=== PATIENT | male | born 1990 | race Caucasian/White ===

== ENCOUNTER 2016-12-11 15:31 | Emergency (ER) | payer OTHER ==
[~2016-12-11] VITALS: Ht 170.2 cm; Wt 72.7 kg
[~2016-12-11 15:31] MED LIST: IBUP800T28 PO
[2016-12-11 15:39] VITALS: BP 107/70; PULSE 71; RESP 15; O2SAT 99
--- NOTE | 2016-12-11 18:20 | ED.REPORT ---
HPI-Rash / Abscess Date of Service Dec 11, 2016 ED Provider: Keith Olmos MD Buck is a 26-year-old injection drug user who presents with a chief complaint of an abscess on his left anterior forearm. He states that his been there for 3 days. He also complains of an area of induration over the insertion of his right pectoral muscle near axilla. Reports neither site is particularly painful. Denies fever, chills, malaise, vomiting, abdominal pain. Nursing Notes Stated Complaint: LEFT ARM BUMP Chief Complaint: Skin Rash/Abscess Nursing Notes Reviewed: Yes Allergies: Coded Allergies: No Known Allergies (Unverified , 12/11/16) Scheduled Cephalexin (Keflex) 500 Mg Capsule 500 MG PO QID Sulfamethoxazole/Trimeth 800-160 mg (Bactrim DS) 1 Each Tablet 1 TABLET PO BID Scheduled PRN Ibuprofen (Ibuprofen) 800 Mg Tablet 800 MG PO BID PRN PRN For Pain General Time Seen by MD: 17:36 Chief Complaint Abscess Review of Systems Review of Systems Note: Negative unless stated otherwise in history of present illness Physical Exam General: Well appearing, well developed, well nourished, no acute distress. Left arm: 2 cm area of raised induration on anterior left forearm, no surrounding erythema or lymphangitis. Half centimeter area of raised induration proximal to this point with no area of fluctuance, erythema or lymphangitis. Evidence of injection drug use. Right arm: 3 cm x 3 cm area of firmness and ecchymosis anterior right axilla. Mild tenderness, no erythema or warmth. Head: Atraumatic, normocephalic. Eyes: No scleral icterus or injection. No discharge. Vision grossly intact. ENT: Voice clear, hearing grossly intact. Skin: Warm and dry. Neurological: Grossly nonfocal. Psychological: alert and oriented. Speech appropriate, linear and logical. Behavior appropriate. Initial Vital Signs Vital Signs (First) Date Time Temp Pulse Resp B/P Pulse Ox O2 Delivery O2 Flow Rate FiO2 12/11/16 15:39 36.2 71 15 107/70 99 Room Air Initial VS: Reviewed, Vital signs normal Procedures Incision & Drainage Abscess Procedure Performed by: [facility] pract Consent / Setup / Site Prep: Informed consent provided, Consent from patient , Hand hygiene observed Skin Preparation Agent: Betadine Local Anesthesia: Lidocaine w epi 1%, 1cc Incised Abscess with Scalpel: #11 Pus Drained: Small, Purulent discharge, Bloody Irrigation: No Post-Procedure / Complications: Packing placed, Culture obtained, Condition improved, Tolerated procedure well, Patient stable Re-Eval/Medical Decision Med Decision/Clinical Course 26-year-old male otherwise healthy but with a history of IV drug use presents with an approximately 2 cm abscess on his left forearm. No complaints of fever , chills, malaise, abdominal pain and vomiting. He also has an area of firmness in his anterior right axilla. Incision and drainage of the left arm wound produces a small amount of pus. Packing is placed, prescribed Bactrim DS and Keflex for one week and asked for return in 3 days for wound check. Patient tolerated the procedure well and agrees with the plan. The area of firmness in the right axilla was examined by Dr. olmos with ultrasound. Some indication of scarring and infection but no comparable target. The feeling is this should improve with antibiotics and will be checked again in 3 days. Advised primary care follow-up, provided return precautions. Patient feels comfortable with the plan and ready for discharge, answered all questions to the best of my ability. Discharge & Departure Impression: Primary Impression: Abscess Disposition: Home Discharge Condition All VS Reviewed: Yes Condition: Stable Patient Instructions: Abscess Incision and Drainage (ED) Additional Instructions: Evaluation for an abscess in the emergency department. We cut and drained the abscess on your left forearm, place a small wick in it and took a culture. I suggest the leave this wound covered and dry for the next 24 hours. After that you can remove the dressing, removed the packing, wash with soap and water, reapply antibiotic ointment and re-cover. The swelling area right armpit, we ultrasounded. We did see signs that there may be an infection, but not a large pus pocket that is worth draining. This should improve with use of antibiotics and we will look at it in 3 days. The pain is best treated with 400 mg of ibuprofen (Advil, Motrin) every 6 hours , or 1000 mg of acetaminophen (Tylenol) every 6 hours. These drugs can be taken at the same time for more severe pain. I have prescribed 2 different kinds of antibiotics to please take them both for the entire 7 days. Be vigilant for signs of infection including increasing pain, redness, swelling or the appearance of pus.Return to emergency department in 3 days for a wound check, or sooner for new or worsening symptoms including fever or signs of infection. Referrals: Amador Sotelo MD (PCP) EDSupervising Provider for APC: Keith Olmos MD Attending Statement Attending attestation: I saw this patient in conjunction with Yair Burns PA-C. I was present for all rios portions of the history taking and physical examination. I agree with the workup, evaluation, treatment and disposition. Keith Olmos MD copies to: Amador Sotelo MD, Seth PA-C Dec 11, 2016 18:20 Keith Olmos MD Dec 11, 2016 18:32
[2016-12-11] MEDS ORDERED: CEPH-512 PO (18:21)
[2016-12-11] MEDS ORDERED: SULF1TAB7 PO (18:21)
[2016-12-11 18:34] VITALS: BP 116/58; PULSE 56; O2SAT 100
== END 2016-12-11 18:36 | disposition home or self-care (01) ==
LOC: SED 15:31
DX: L02.414 Cutaneous abscess of left upper limb (principal)

== ENCOUNTER 2016-12-16 17:33 | Emergency (ER) | payer OTHER ==
[~2016-12-16 17:33] MED LIST changes: +CEPH-512 PO; +SULF1TAB7 PO
[2016-12-16 17:43] VITALS: BP 100/66; PULSE 84; RESP 18; O2SAT 99
--- NOTE | 2016-12-16 20:42 | ED.REPORT ---
HPI-Rash / Abscess Date of Service Dec 16, 2016 ED Provider: Yair Burns PA-C Patient is a 26-year-old male with a history of injection drug use who presents for wound recheck after I&D of an abscess on his left forearm 3 days ago. The patient reports the wound is improving and denies systemic symptoms such as fever, chills, malaise, abdominal pain, vomiting, palpitations. However area of induration on his left shoulder he reports it is quite itchy and does not appear to be improving. Nursing Notes Stated Complaint: RECHECK Chief Complaint: Wound Recheck/Suture Removal Nursing Notes Reviewed: Yes Allergies: Coded Allergies: No Known Allergies (Unverified , 12/11/16) Scheduled Cephalexin (Keflex) 500 Mg Capsule 500 MG PO QID Sulfamethoxazole/Trimeth 800-160 mg (Bactrim DS) 1 Each Tablet 1 TABLET PO BID Scheduled PRN Ibuprofen (Ibuprofen) 800 Mg Tablet 800 MG PO BID PRN PRN For Pain General Time Seen by MD: 18:53 Chief Complaint Other (wound recheck) Past Medical History Past Medical History Notes: Denies Review of Systems Negative unless stated otherwise in history of present illness Physical Exam General: Well appearing, well developed, well nourished, no acute distress. Left arm: Site of incision and drainage appears to be healing well. The packing has fallen out and the wound is slightly crusted over. No longer gaping. Struck by a small area of erythema. No tenderness. Right arm: Head: Atraumatic, normocephalic. Eyes: No scleral icterus or injection. No discharge. Vision grossly intact. ENT: Voice clear, hearing grossly intact. Respiratory: No respiratory distress, no increased work of breathing. Speaks in complete sentences. Skin: Warm and dry. Neurological: Grossly nonfocal. Psychological: alert and oriented. Speech appropriate, linear and logical. Behavior appropriate. Initial Vital Signs Vital Signs (First) Date Time Temp Pulse Resp B/P Pulse Ox O2 Delivery O2 Flow Rate FiO2 12/16/16 17:43 36.8 84 18 100/66 99 Room Air Initial VS: Reviewed, Vital signs normal Interpretation & Diagnostics Interpretation & Diagnostics: Wound culture from previous visit: Microbiology LUZ GS (GRAM STAIN) Final 12/11/16-2118 GRAM STAIN RESULT RARE POLYS NO ORGANISMS SEEN LUZ CULT AEROBIC Final 12/16/16 SCANT NORMAL SANKET PRESENT ANAEROBIC CULTURE Final 12/16/16 No anaerobes isolated US Soft Tissue/Musculoskeletal Phlegmon/abscess 1 x 2 cm on anterior deltoid Exam Performed by: ED physician (Dr. Quigley) Indication: Swelling Procedures Incision & Drainage Abscess Procedure Performed by: Allied health pract Consent / Setup / Site Prep: Informed consent provided, Consent from patient , Hand hygiene observed, Stand sterile technique Skin Preparation Agent: Other (alcohol) Local Anesthesia: Other (Sensorcaine 0.5%) Incised Abscess with Scalpel: #11 Pus Drained: Bloody (bloody with slight purulence.) Irrigation: No Post-Procedure / Complications: Packing placed, Dressing applied, No complications, Condition improved, Tolerated procedure well, Patient stable Re-Eval/Medical Decision Med Decision/Clinical Course 18-year-old male with history of IV drug abuse return sooner to the department for a wound check following an incision and drainage 3 days ago on his left forearm. This wound appears to be healing well, the packing has fallen out and the wound is closed. It is surrounded by a very small area of erythema and is nontender. Area of induration on the patient's right shoulder which was examined with ultrasound 3 days ago and did not reveal any pockets of fluid, appears relatively unchanged and appears fluctuant on physical examination. Repeat examination with ultrasound by Dr. Quigley reveals a pocket of fluid. Incision and drainage produces only blood and a very small amount of pus. No areas of fluctuance are detected by palpation after the procedure. The wound is packed and dressed with gauze. Patient is instructed to follow-up with his primary care provider in 2-3 days or return to emergency Department if he cannot be seen. Return precautions provided Discharge & Departure Impression: Primary Impression: Abscess Additional Impression: Encounter for recheck of abscess following incision and drainage Disposition: Home Discharge Condition All VS Reviewed: Yes Condition: Stable Patient Instructions: Abscess Incision and Drainage (ED) Additional Instructions: Evaluation in the emergency Department for a wound recheck. The initial incision and drainage be performing a left arm appears to be healing well. Continue to monitor this if redness, swelling or pain increases, follow-up with your primary care provider or return to emergency department The area of induration on her right shoulder appears to have not improved and perhaps grown slightly. Examination with ultrasound revealed a collection of fluid under the surface that was not seen 3 days ago. We drained this pocket and placed packing. Monitor this wound as he have the other one. Keep it covered up for 2-3 days. Please follow-up with your primary care provider for further assessment, or return to emergency department for wound check if you cannot get in there. Continue taking her antibiotics as instructed previously. The pain is best treated with 400 mg of ibuprofen (Advil, Motrin) every 6 hours , or 1000 mg of acetaminophen (Tylenol) every 6 hours. These drugs can be taken at the same time for more severe pain. Return to emergency department for new or worsening systemic symptoms including fever, chills, cold sweats, feeling ill, racing heart. Referrals: Amador Sotelo MD (PCP) EDSupervising Provider for APC: Mohamud Quigley MD copies to: Amador Sotelo MD, Seth PA-C Dec 16, 2016 20:41
[2016-12-16 21:07] VITALS: PULSE 79; RESP 16; O2SAT 98
== END 2016-12-16 21:08 | disposition home or self-care (01) ==
LOC: SED 17:33
DX: L02.414 Cutaneous abscess of left upper limb (principal); Z51.89 Encounter for other specified aftercare

== ENCOUNTER 2017-01-06 22:19 | Emergency (ER) | payer OTHER ==
[~2017-01-06] VITALS: Ht 170.2 cm; Wt 72.7 kg
[2017-01-06 22:23] VITALS: BP 127/73; PULSE 80; RESP 20; O2SAT 97
== END 2017-01-07 00:38 | disposition left against medical advice (07) ==
LOC: SED 22:19
DX: Z53.20 Procedure and treatment not carried out because of patient's decision for unspecified reasons (principal)